=== PATIENT | female | born 1975 | race Caucasian/White ===

== ENCOUNTER 2019-08-31 16:05 | Emergency (ER) | payer SELFPAY ==
[~2019-08-31] VITALS: Ht 149.9 cm; Wt 59.0 kg
[2019-08-31 16:12] VITALS: Ht 149.9 cm; Wt 59.0 kg
[2019-08-31 18:15] VITALS: BP 115/75
== END 2019-08-31 18:15 | disposition other institution (70) ==
LOC: ED 16:05
DX: R05 Cough (principal); R07.89 Other chest pain; E11.9 Type 2 diabetes mellitus without complications; I10 Essential (primary) hypertension; Z13.9 Encounter for screening, unspecified; Z88.0 Allergy status to penicillin; Z88.1 Allergy status to other antibiotic agents; Z98.890 Other specified postprocedural states
CPT/HCPCS: 82962; 99406; Q0092

== ENCOUNTER 2019-08-31 16:52 | Emergency (ER) | payer OTHER | END 2019-08-31 18:15 | disposition other institution (70) | LOC: ED 16:52 | DX: Z02.89 Encounter for other administrative examinations (principal) ==